=== PATIENT | female | born 1985 | race Caucasian/White ===

== ENCOUNTER → 2021-04-19 09:19 | Outpatient (CLI) | payer OTHER, SELFPAY ==
[2021-04-19 10:16] LABS: Add Manual Diff / Slide Review NO; Basophils Absolute Auto 0 /uL (0-100); Basophils Percent Auto 0.4 % (0-2); Eosinophils Absolute Auto 100 /uL (0-450); Eosinophils Percent Auto 1.2 % (2-4); Hematocrit 40.9 % (36-46); Hemoglobin 13.5 g/dL (12.0-16.0); Lymphocytes Absolute Auto 1300 /uL (1100-4500); Mean Corpuscular Hemoglobin 29.5 PG (26-34); Mean Corpuscular Volume 89.2 fL (80-100); Monocytes Absolute Auto 400 /uL (0-900); Monocytes Percent Auto 6.1 % (3-14); Neutrophils Absolute Auto 4300 /uL (1500-7000); Neutrophils Percent Auto 71.3 % (50-75); Platelet Count 226 X10^3/uL (150-400); Red Blood Cell Count 4.58 X10^6/uL (4.0-5.2); Red Cell Distribution Width 12.9 % (11.6-14.8)
[2021-04-19 10:40] LABS: Alanine Aminotransferase 13 IU/L (<35); Albumin 4.1 g/dL (3.5-5.0); Albumin Globulin Ratio 1.4 (1.0-2.8); Alkaline Phosphatase 42 U/L (38-126); Aspartate Aminotransferase 22 IU/L (14-36); BUN Creatinine Ratio 32.9 (6-22); Bilirubin Total 0.4 mg/dL (0.2-1.3); Blood Urea Nitrogen 24 mg/dL (7-17); Carbon Dioxide 28 mmol/L (22-32); Chloride 106 mmol/L (98-107); Estimated Glomerular Filt Rate > 60.0 mL/min (>60); Globulin 2.9 g/dL (1.7-4.1); Glucose 97 mg/dL (70-100); HEMOLYSIS < 15 (0-50); Potassium 4.4 mmol/L (3.4-5.1); Sodium 138 mmol/L (137-145)
[2021-04-19 11:43] LABS: TSH w/ Reflex to FT4 1.29 uIU/mL (0.47-4.68)
== END ==
PROVIDERS: PCP Family Medicine; Referring Provider Family Medicine; Visit Provider Family Medicine
DX: L65.9 Nonscarring hair loss, unspecified (principal)
CPT/HCPCS: 36415; 80053; 84443; 85025

== ENCOUNTER → 2023-08-06 08:02 | Outpatient (CLI) | payer OTHER, SELFPAY ==
[2023-08-06 08:55] LABS: Add Manual Diff / Slide Review NO; Basophils Absolute Auto 0 /uL (0-100); Basophils Percent Auto 0.9 % (0-2); Eosinophils Absolute Auto 100 /uL (0-450); Hematocrit 40.1 % (36-46); Hemoglobin 13.4 g/dL (12.0-16.0); Lymphocytes Absolute Auto 1600 /uL (1100-4500); Lymphocytes Percent Auto 30.3 % (25-40); Mean Corpuscular HGB Conc 33.5 % (30-36); Mean Corpuscular Hemoglobin 29.5 PG (26-34); Mean Corpuscular Volume 87.9 fL (80-100); Monocytes Absolute Auto 400 /uL (0-900); Monocytes Percent Auto 7.7 % (3-14); Neutrophils Absolute Auto 3100 /uL (1500-7000); Neutrophils Percent Auto 59.1 % (50-75); Platelet Count 234 X10^3/uL (150-400); Red Blood Cell Count 4.56 X10^6/uL (4.0-5.2); Red Cell Distribution Width 12.5 % (11.6-14.8); White Blood Cell Count 5.3 X10^3/uL (4.5-11.0)
[2023-08-06 09:28] LABS: Alanine Aminotransferase 12 IU/L (<35); Albumin 4.1 g/dL (3.5-5.0); Albumin Globulin Ratio 1.4 (1.0-2.8); Alkaline Phosphatase 45 U/L (38-126); Aspartate Aminotransferase 28 IU/L (14-36); BUN Creatinine Ratio 22.2 (6-22); Bilirubin Total 0.8 mg/dL (0.2-1.3); Blood Urea Nitrogen 18 mg/dL (7-17); Calcium 9.4 mg/dL (8.4-10.2); Carbon Dioxide 29 mmol/L (22-32); Chloride 102 mmol/L (98-107); Cholesterol 187 mg/dL (140-199); Estimated Glomerular Filt Rate > 60 mL/min (>60); Glucose 91 mg/dL (70-100); HDL Cholesterol 61 mg/dL (40-60); HEMOLYSIS 21 (0-50); LDL Cholesterol Calculated 114 mg/dL (<100); Potassium 4.8 mmol/L (3.4-5.1); Sodium 137 mmol/L (137-145); Total Protein 7.1 g/dL (6.3-8.2); Triglycerides 59 mg/dL (35-150)
[2023-08-06 09:55] LABS: TSH w/ Reflex to FT4 1.42 uIU/mL (0.47-4.68)
== END ==
PROVIDERS: PCP Nurse Practitioner; Referring Provider Family Medicine; Visit Provider Family Medicine
DX: R00.2 Palpitations (principal)
CPT/HCPCS: 36415; 80053; 80061; 84443; 85025

== ENCOUNTER 2023-11-03 15:58 | Emergency (ER) | payer OTHER, SELFPAY ==
[2023-11-03 16:20] VITALS: BP 153/91; PULSE 84; RESP 16; TEMP 37.1; O2SAT 100; BMI 28.2
== END 2023-11-03 17:57 | disposition left against medical advice (07) ==
PROVIDERS: Emergency Provider Emergency Medicine; PCP Nurse Practitioner
DX: R42 Dizziness and giddiness (principal)
CPT/HCPCS: 99281

== ENCOUNTER 2023-11-11 09:43 | Emergency (ER) | payer OTHER, SELFPAY ==
[2023-11-11 09:45] VITALS: BP 155/95; PULSE 93; RESP 15; TEMP 36.9; O2SAT 96; BMI 28.2
[2023-11-11 09:49] VITALS: BP 155/95; PULSE 91; O2SAT 97
--- NOTE | 2023-11-11 11:08 | ED_ITS ---
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 Patient states she has been having ear issues for the past several weeks, had pain, some muffled changes crackling in the left ear. She was placed on antibiotics and completed a week's worth had some improvement in pain but still has crackling and some decreased sound. Patient states she has been referred to ENT has a follow up appointment next week. She presents today because she developed dizziness or feels off balance she states the room is not spinning. Patient states no headaches. She states she can not really pop right ear can her left. She has not ever had any had any drainage from the ears. She has not had any loss of hearing just states it feels sort of muffled or underwater particularly on the left side. Patient denies any chest pain or pressure, she has had some decreased appetite but denies nausea or vomiting, no diarrhea or constipation, no urinary symptoms. No weakness in her extremities, no loss of sensation. No lateralizing numbness or tingling. Patient has not had similar symptoms in the past. States she has been on atenolol since she was young saw a [employer] consultant for extra beats. No other daily prescriptions. States she had a orthopedic surgery in the past but no other surgeries. Former smoker, no regular alcohol, no recreational drugs. Dr. Lutz is her primary care physician. She is set up to see ENT in the following week. Related Data Previous Rx's Medication Instructions Recorded atenolol 25 mg tablet 25 mg PO QDAY #90 tabs 05/21/23 amoxicillin 875 mg-potassium 1 tab PO BID #14 tabs 11/01/23 clavulanate 125 mg tablet meclizine 25 mg chewable tablet 25 mg PO QID PRN dizziness #20 tabs 11/11/23 Allergies Allergy/AdvReac Type Severity Reaction Status Date / Time No Known Drug Allergies Allergy Verified 11/11/23 09:50 Review of Systems Review of Systems ROS Unobtainable: All systems reviewed & are unremarkable except as noted in HPI and below Patient History Medical History Hearing deficit Abnormal Pap smear of cervix (~2014) Cardiac arrhythmia (~2014) Tobacco use (01/05/18) Surgical History Anesthesia Broken foot (~2012) Status post LASIK surgery (~2015) Family History Father Cancer Grandfather No problems noted. Mother Alcoholic Grandfather Cancer Social History marital status: number of children: 2 occupational status: employed Smoking Status: Former smoker alcohol intake: current substance use type: does not use Smoking Status: Former smoker alcohol intake frequency: holidays/special occasions only Substance Use Type: does not use Exam Narrative Exam Narrative: GEN: well nourished, well appearing female, alert and oriented x 3, patient appears to be in moderate distress. HEENT: Atraumatic, pupils are equal round reactive to light, extraocular movements are intact, nares are clear, TMs are retracted bilaterally left has a small amount of clear fluid, no erythema canal is otherwise normal, the right has fluid behind the TM but appears more retracted, no loss of light reflex, patient does not have any changes to the canal, there is no conjunctival pallor. Throat is clear without any exudates, erythema, tonsillar enlargement or uvular deviation, no facial droop HEART: Regular rate and rhythm without murmur, clicks, rubs. No carotid bruits, pulses are equal in upper and lower extremities LUNGS:Lungs clear to auscultation, no wheezes, rales, crackles, chest moves symmetrically ABD:bowel sounds normal, soft, non-tender, no guarding, rebound, rigidity, no masses noted, no hepatosplenomegaly :No CVA tenderness MSCL: Non-tender, no muscle atrophy, muscles strength 5/5 upper and lower extremities, full range of motion, normal gait NEURO:CN 2-12 intact, sensation normal, reflexes 2/4 upper and lower extremities. finger nose finger test normal, heel urbina test normal SKIN: Initial Vital Signs Initial Vital Signs: Vital Signs Temperature 98.4 F 11/11/23 09:45 Pulse Rate 93 H 11/11/23 09:45 Respiratory Rate 15 11/11/23 09:45 Blood Pressure 155/95 H 11/11/23 09:45 Pulse Oximetry 96 11/11/23 09:45 Oxygen Delivery Method Room Air 11/11/23 09:45 Course Orders Ordered: ED Orders 11/11/23 11:08 Complete Blood Count AUTO DIFF Stat Comprehensive Metabolic Panel Stat Lipase Stat Magnesium Stat PTT Partial Thromboplastin Song Stat Prothrombin Time INR Stat Troponin & CK Cardiac Panel Stat 11/11/23 11:10 XR chest 1V Stat EKG-12 Lead Stat 11/11/23 11:35 CT head/brain wo con Stat Discontinued Medications Meclizine HCl (Meclizine Hcl 12.5 Mg Tablet) 50 mg PO NOW ONE Stop: 11/11/23 11:28 Last Admin: 11/11/23 11:28 Dose: 50 mg Documented By: CTS Vital Signs Vital signs: Vital Signs - 8 hr 11/11/23 09:45 11/11/23 09:49 11/11/23 09:49 Temperature 98.4 F Pulse Rate 93 H 91 H Respiratory Rate 15 Blood Pressure 155/95 H 155/95 H Pulse Oximetry 96 97 Oxygen Delivery Method Room Air 11/11/23 12:29 Temperature Pulse Rate 84 Respiratory Rate 16 Blood Pressure 138/78 Pulse Oximetry 99 Oxygen Delivery Method Room Air MDM - Dizziness Lab Data 11/11/23 11:08 11/11/23 11:08 Labs: Lab Results 11/11/23 Range/Units 11:08 WBC 6.8 (4.5-11.0) X10^3/uL RBC 4.36 (4.0-5.2) X10^6/uL Hgb 12.8 (12.0-16.0) g/dL Hct 38.0 (36-46) % MCV 87.1 (80-100) fL MCH 29.5 (26-34) PG MCHC 33.8 (30-36) % RDW 12.9 (11.6-14.8) % Plt Count 215 (150-400) X10^3/uL Neut % (Auto) 75.2 H (50-75) % Lymph % (Auto) 19.1 L (25-40) % Mcclain % (Auto) 4.9 (3-14) % Eos % (Auto) 0.3 L (2-4) % Baso % (Auto) 0.5 (0-2) % Neut # (Auto) 5100 (2870-9079) /uL Lymph # (Auto) 1300 (8861-8756) /uL Mcclain # (Auto) 300 (0-900) /uL Eos # (Auto) 0 (0-450) /uL Baso # (Auto) 0 (0-100) /uL PT 13.3 H (9.4-12.5) SECONDS INR 1.2 (0.9-1.3) APTT 31 (25.1-36.5) SECONDS Sodium 140 (137-145) mmol/L Potassium 4.6 (3.4-5.1) mmol/L Chloride 106 (98-107) mmol/L Carbon Dioxide 27 (22-32) mmol/L BUN 17 (7-17) mg/dL Creatinine 0.70 (0.52-1.04) mg/dL Estimated GFR > 60 (>60) mL/min BUN/Creatinine Ratio 24.3 H (6-22) Glucose 92 (70-100) mg/dL Calcium 9.0 (8.4-10.2) mg/dL Magnesium 2.2 (1.6-2.3) mg/dL Total Bilirubin 0.7 (0.2-1.3) mg/dL AST 20 (14-36) IU/L ALT 12 (<35) IU/L Alkaline Phosphatase 46 (38-126) U/L Total Creatine Kinase 81 (30-135) U/L Troponin I < 0.012 (0.01-0.034) ng/mL Total Protein 7.0 (6.3-8.2) g/dL Albumin 4.0 (3.5-5.0) g/dL Globulin 3.0 (1.7-4.1) g/dL Albumin/Globulin Ratio 1.3 (1.0-2.8) Lipase 80 (23-300) U/L Imaging Data CT scan - head: Radiologist's Impression: Close Head CT (Signed) Marco Antonio Hui - 11/11/23 Chest X-Ray (Signed) Marco Antonio Hui 11/11/[address] [address] [address] Scan Report Signed Patient: Lucia Vásquez MR#: [id number] : 1985 Acct:[id number] Age/Sex: 38 / F Date of Service: 11/11/23 Loc: ED Accession Number: [id number] Procedure: CT head/brain wo con Ordering Provider: Randa Jones D.O. PROCEDURE: CT HEAD/BRAIN WO CON INDICATIONS: dizziness, ear issues x 3 weeks. TECHNIQUE: Noncontrast 4.5 mm thick angled axial sections acquired from the foramen magnum to the vertex, with coronal and sagittal reformats. For radiation dose reduction, the following was used: automated exposure control, adjustment of mA and/or kV according to patient size. COMPARISON: None. FINDINGS: Image quality: Diagnostic. CSF spaces: Basal cisterns are patent. No extra-axial fluid collections. Ventricles are normal in size and shape. Brain: No midline shift. No intracranial masses or hemorrhage. Lala-white matter interface is normal. Skull and face: Calvarium and visualized facial bones are intact, without suspicious lesions. Sinuses: Visualized sinuses and mastoids are clear. IMPRESSION: No acute intracranial pathology. Dictated by: Marco Antonio Hui M.D. on 11/11/2023 at 11:44 Approved by: Marco Antonio Hui M.D. on 11/11/2023 at 11:45 Chest x-ray: Radiologist's Impression: Lucia Vásquez??She/Her/Hers??38??F??1985 ? Allergy/Adv: No Known Drug Allergies (More??) Close Head CT (Signed) Marco Antonio Hui - 11/11/23 Chest X-Ray (Signed) Marco Antonio Hui - 11/11/23 Launch?[address] [address] XRay Report Signed Patient: Lucia Vásquez MR#: [id number] : 1985 Acct:[id number] Age/Sex: 38 / F Date of Service: 11/11/23 Loc: ED Accession Number: [id number] Procedure: XR chest 1V Ordering Provider: Randa Jones D.O. PROCEDURE: XR CHEST 1V INDICATIONS: chest pain TECHNIQUE: One view of the chest was acquired. COMPARISON: None. FINDINGS: Surgical changes and devices: None. Lungs and pleura: Lungs are clear. No pleural effusions or pneumothorax. Mediastinum: Mediastinal contours appear normal. Heart size is normal. Bones and chest wall: No suspicious bony lesions. Overlying soft tissues appear unremarkable. IMPRESSION: No acute cardiopulmonary abnormality is seen. Dictated by: Marco Antonio Hui M.D. on 11/11/2023 at 11:31 Approved by: Marco Antonio Hui M.D. on 11/11/2023 at 11:31 ECG Data Attestation: I personally reviewed and interpreted this ECG as follows: Interpretation: Sinus rhythm rate of 66 IN 176 QRS of 98 QTC of 440. No acute ST changes appreciated. MDM Narrative Medical decision making narrative: 38-year-old female comes in with complaint of feeling off balance and some tingling in both fingers. Patient has had quite a bit of ear issues with fullness, muffled and pain pain has been improving after some antibiotics but still has some fluid in her ears on examination. Patient's neuro exam is negative, her NIH is 0. Head CT is negative for acute change Chest x-ray is negative EKG is normal sinus rhythm without any ST changes Labs show normal white count, hemoglobin and platelets, coags are negative, electrolytes, renal function LFTs and troponin are negative. Patient was given a dose of meclizine orally here. Patient is felt safe and appropriate for discharge home. Discussed she can continue with meclizine can continue with antihistamines for her ears she does not have any obvious infection she is set up to see ENT in the following week which I think maybe the most helpful. Discharge Plan Departure Patient Disposition: Home Clinical Impression: Dizziness Activity Restrictions/Additional Instructions: Please follow up with ENT at your scheduled appointment. If your symptoms are continuing to worsen you can reach out to the office to see if they can reschedule you at a sooner time. You do have some fluid on each side of your ears but no signs of infection today. Continue with antihistamines and the flonase regularly. You may take meclizine 1-2 tablets every 6 hours as needed for dizziness or vertigo symptoms. This is available [id number] but a prescription was sent to [facility] in [place]. Please return for new or worsening symptoms severe headaches, sudden vision changes, difficulty with speech, new numbness tingling or difficulty with movement, a little bit to ambulate or walk safely, persistent vomiting or other new or concerning changes. Prescriptions: New meclizine 25 mg tablet,chewable 25 mg PO QID PRN (Reason: dizziness) Qty: 20 0RF No Action amoxicillin-pot clavulanate 875-125 mg tablet 1 tab PO BID Qty: 14 0RF atenolol 25 mg tablet 25 mg PO QDAY Qty: 90 3RF Rx Instructions: Due for annual exam Referrals: Lani Valenzuela ARNP [Primary Care Provider] - Stand Alone Forms: Patient Portal/API
[2023-11-11 11:25] LABS: Add Manual Diff / Slide Review NO; Basophils Absolute Auto 0 /uL (0-100); Basophils Percent Auto 0.5 % (0-2); Eosinophils Absolute Auto 0 /uL (0-450); Eosinophils Percent Auto 0.3 % (2-4); Hemoglobin 12.8 g/dL (12.0-16.0); Lymphocytes Absolute Auto 1300 /uL (1100-4500); Lymphocytes Percent Auto 19.1 % (25-40); Mean Corpuscular HGB Conc 33.8 % (30-36); Mean Corpuscular Hemoglobin 29.5 PG (26-34); Mean Corpuscular Volume 87.1 fL (80-100); Monocytes Absolute Auto 300 /uL (0-900); Monocytes Percent Auto 4.9 % (3-14); Neutrophils Absolute Auto 5100 /uL (1500-7000); Neutrophils Percent Auto 75.2 % (50-75); Platelet Count 215 X10^3/uL (150-400); Red Blood Cell Count 4.36 X10^6/uL (4.0-5.2); Red Cell Distribution Width 12.9 % (11.6-14.8); White Blood Cell Count 6.8 X10^3/uL (4.5-11.0)
[2023-11-11] MEDS: MECLIZINE HCL 12.5 MG TABLET 50 MG PO (11:28)
[2023-11-11 11:33] LABS: INR 1.2 (0.9-1.3); Prothrombin Time 13.3 SECONDS (9.4-12.5)
--- NOTE | 2023-11-11 11:35 | DI.CT.S_ITS ---
PROCEDURE: CT HEAD/BRAIN WO CON INDICATIONS: dizziness, ear issues x 3 weeks. TECHNIQUE: Noncontrast 4.5 mm thick angled axial sections acquired from the foramen magnum to the vertex, with coronal and sagittal reformats. For radiation dose reduction, the following was used: automated exposure control, adjustment of mA and/or kV according to patient size. COMPARISON: None. FINDINGS: Image quality: Diagnostic. CSF spaces: Basal cisterns are patent. No extra-axial fluid collections. Ventricles are normal in size and shape. Brain: No midline shift. No intracranial masses or hemorrhage. Lala-white matter interface is normal. Skull and face: Calvarium and visualized facial bones are intact, without suspicious lesions. Sinuses: Visualized sinuses and mastoids are clear. IMPRESSION: No acute intracranial pathology. Dictated by: Marco Antonio Hui M.D. on 11/11/2023 at 11:44 Approved by: Marco Antonio Hui M.D. on 11/11/2023 at 11:45
[2023-11-11 11:36] LABS: PTT Partial Thromboplastin Tim 31 SECONDS (25.1-36.5)
[2023-11-11 11:39] LABS: Alanine Aminotransferase 12 IU/L (<35); Albumin Globulin Ratio 1.3 (1.0-2.8); Alkaline Phosphatase 46 U/L (38-126); Aspartate Aminotransferase 20 IU/L (14-36); BUN Creatinine Ratio 24.3 (6-22); Bilirubin Total 0.7 mg/dL (0.2-1.3); Blood Urea Nitrogen 17 mg/dL (7-17); Carbon Dioxide 27 mmol/L (22-32); Chloride 106 mmol/L (98-107); Creatine Kinase 81 U/L (30-135); Estimated Glomerular Filt Rate > 60 mL/min (>60); Glucose 92 mg/dL (70-100); HEMOLYSIS < 15 (0-50); Lipase 80 U/L (23-300); Magnesium 2.2 mg/dL (1.6-2.3); Potassium 4.6 mmol/L (3.4-5.1); Sodium 140 mmol/L (137-145)
[2023-11-11 11:49] LABS: Troponin I < 0.012 ng/mL (0.01-0.034)
[2023-11-11 12:29] VITALS: BP 138/78; PULSE 84; RESP 16; O2SAT 99
== END 2023-11-11 12:30 | disposition home or self-care (01) ==
PROVIDERS: Emergency Provider Emergency Medicine; PCP Nurse Practitioner
DX: R42 Dizziness and giddiness (principal); R29.700 NIHSS score 0; R07.9 Chest pain, unspecified
CPT/HCPCS: 36415; 70450; 71045; 80053; 82550; 83690; 83735; 84484; 85025; 85610; 85730; 93005; 99284

== ENCOUNTER → 2024-06-09 13:32 | Outpatient (CLI) | payer OTHER, MEDICAID, SELFPAY | LOC: CAR 13:33 | PROVIDERS: PCP Student in an Organized Health Care Education/Training Program; Referring Provider Nurse Practitioner; Visit Provider Nurse Practitioner | DX: R00.2 Palpitations (principal); R55 Syncope and collapse | CPT/HCPCS: 93246 ==

== ENCOUNTER → 2024-08-10 08:03 | Outpatient (CLI) | payer OTHER, MEDICAID, SELFPAY ==
--- NOTE | 2024-08-10 08:04 | DI.MG.S_ITS ---
BILATERAL DIGITAL SCREENING MAMMOGRAM 3D/2D WITH CAD: 08/10/2024 CLINICAL: Baseline exam. Routine screening. No prior exams were available for comparison. The breasts are heterogeneously dense, which may obscure small masses (category c / 51-75% glandular tissue). Current study was also evaluated with a Computer Aided Detection (CAD) system. No significant masses, calcifications, or other findings are seen in either breast. IMPRESSION: NEGATIVE There is no mammographic evidence of malignancy. A 1 year screening mammogram is recommended. Based on the Tyrer Cuzick model (a risk assessment model) the patient's lifetime risk is 8.4% and her 10 year risk is 1.0%. According to the ACR, ACS, and NCCN guidelines, an annual breast MRI exam along with mammogram is recommended if the patient's lifetime risk is 20% or greater. This exam was interpreted at Station ID: [id number]. NOTE: For mammograms, a report in lay terms will be sent to the patient. Approximately 15% of breast malignancies will not be visualized mammographically. In the management of a palpable breast mass, a negative mammogram must not discourage biopsy of a clinically suspicious lesion. Electronically Signed By: Shanthi Bonilla M.D., Ph.D. beka/mo:08/10/2024 09:21:52 letter sent: Normal Exam ACR BI-RADS Category 1: Negative
[2024-08-10 08:41] LABS: Hemoglobin A1C% w Est Avg Glu 4.9 % (4.0-6.0)
[2024-08-10 08:56] LABS: Alanine Aminotransferase 15 IU/L (<35); Albumin 3.6 g/dL (3.5-5.0); Albumin Globulin Ratio 1.2 (1.0-2.8); Alkaline Phosphatase 49 U/L (38-126); Aspartate Aminotransferase 22 IU/L (14-36); BUN Creatinine Ratio 31.6 (6-22); Bilirubin Total 0.4 mg/dL (0.2-1.3); Blood Urea Nitrogen 24 mg/dL (7-17); Calcium 9.2 mg/dL (8.4-10.2); Carbon Dioxide 30 mmol/L (22-32); Chloride 105 mmol/L (98-107); Cholesterol 160 mg/dL (140-199); Estimated Glomerular Filt Rate > 60 mL/min (>60); Globulin 2.9 g/dL (1.7-4.1); Glucose 90 mg/dL (70-100); HDL Cholesterol 56 mg/dL (40-60); HEMOLYSIS < 15 (0-50); LDL Cholesterol Calculated 88 mg/dL (<100); Potassium 4.4 mmol/L (3.4-5.1); Sodium 137 mmol/L (137-145); Total Protein 6.5 g/dL (6.3-8.2); Triglycerides 81 mg/dL (35-150)
== END ==
PROVIDERS: PCP Student in an Organized Health Care Education/Training Program; Referring Provider Student in an Organized Health Care Education/Training Program; Visit Provider Student in an Organized Health Care Education/Training Program
DX: Z12.31 Encounter for screening mammogram for malignant neoplasm of breast (principal); R92.333 Mammographic heterogeneous density, bilateral breasts; E66.9 Obesity, unspecified; R35.0 Frequency of micturition; R63.5 Abnormal weight gain
CPT/HCPCS: 36415; 77063; 77067; 80053; 80061; 83036; 84443